=== PATIENT | female | born 1980 | race African-American/Black ===

== ENCOUNTER 2018-06-05 19:34 | Emergency (ER) | payer MEDICAID ==
[~2018-06-05] VITALS: Ht 170.2 cm; Wt 75.0 kg
[~2018-06-05 19:34] MED LIST: ALBUTEROL
[2018-06-05 19:44] VITALS: BP 114/77
== END 2018-06-05 21:20 | disposition left against medical advice (07) ==
LOC: ER 19:34
DX: M25.552 Pain in left hip (principal); Z53.21 Procedure and treatment not carried out due to patient leaving prior to being seen by health care provider